=== PATIENT | female | born 1955 | race Caucasian/White ===

== ENCOUNTER → 2018-08-21 09:24 | Outpatient (CLI) | payer OTHER, SELFPAY ==
--- NOTE | 2018-08-21 09:30 | DI.RAD.S_ITS ---
PROCEDURE: XR CHEST 2V INDICATIONS: Nicotine dependence, cigarettes, uncomplicated TECHNIQUE: 2 views of the chest were acquired. COMPARISON: None. FINDINGS: Surgical changes and devices: None. Lungs and pleura: No pleural effusions or pneumothorax. Lungs are clear. Mediastinum: Mediastinal contours are normal. Heart size is normal. Bones and chest wall: No suspicious bony abnormalities. Soft tissues appear unremarkable. IMPRESSION: No acute disease. Dictated by: Yusef Boyer M.D. on 08/21/2018 at 10:15 Approved by: Yusef Boyer M.D. on 08/21/2018 at 10:16
== END ==
PROVIDERS: PCP Physician Assistant; Visit Provider Physician Assistant
DX: F17.210 Nicotine dependence, cigarettes, uncomplicated (principal)
CPT/HCPCS: 71046

== ENCOUNTER 2019-04-19 20:03 | Emergency (ER) | payer OTHER, SELFPAY ==
[2019-04-19 20:11] VITALS: BP 155/84; PULSE 78; RESP 16; TEMP 37; O2SAT 96
--- NOTE | 2019-04-19 21:32 | PC.NURSE ---
Addendum entered by Philomena Castro R.N. 04/19/19 21:37: PT reports not on blood thinners. Original Note: PT states bleeding to R ankle onset while taking a shower with steady stream of blood coming out, denies trauma reports history of varicose veins and that a small lump was there near cluster of varicose veins earlier in day. Coban placed in triage, bleeding controlled at present.
--- NOTE | 2019-04-20 01:55 | ED.EXTPRO ---
HPI - Extremity Problem General Chief complaint: Extremity Problem,Nontraumatic Stated complaint: RIGHT FOOT BLEEDING Time Seen by Provider: 04/19/19 20:45 Source: patient and family Mode of arrival: ambulatory Limitations: no limitations History of Present Illness HPI Narrative: 63-year-old female nonsmoker with history of varicose veins presents with her in the chief complaint of spontaneous bleeding from her right medial ankle which he noted in the shower just prior to arrival. She denies any injury and had not shaved her legs but noted heavy bleeding from a varicose vein in her medial ankle, this is never happened before. She is not dizzy nor weak or lightheaded. She does not take blood thinners. She denies any numbness, tingling or weakness. She put a pressure bandage on and the bleeding and. Prior to her arrival MD Complaint: other Onset (ago): minute(s) Pain Consistency: now resolved Location: right Radiation: none Relieving factors: elevation Associated symptoms: denies other symptoms Related Data Previous Rx's Medication Instructions Recorded nitrofurantoin monohyd/m-cryst 100 mg PO BIDCC #10 cap 06/30/17 [Macrobid] Allergies Allergy/AdvReac Type Severity Reaction Status Date / Time No Known Drug Allergies Allergy Unverified 12/24/18 15:54 Review of Systems Constitutional Denies chills, Denies fever(s), Denies lethargy and Denies weakness Eyes Denies change in vision, Denies eye discharge, Denies irritation and Denies loss of vision ENT Ears, Nose, Mouth, and Throat: Denies change in voice, Denies neck pain and Denies sore throat Cardiovascular Denies chest pain, Denies irregular heart rhythm, Denies lightheadedness, Denies palpitations, Denies dyspnea, Denies dyspnea on exertion and Denies orthopnea Respiratory Denies cough, Denies dyspnea, Denies dyspnea on exertion and Denies wheezing Gastrointestinal Gastrointestinal: Denies abdominal pain, Denies change in bowel habits, Denies diarrhea, Denies nausea and Denies vomiting Genitourinary Denies hematuria, Denies flank pain, Denies urinary incontinence and Denies urinary urgency Musculoskeletal Denies neck pain Integumentary/Breasts Denies pruritus, Denies erythema, Denies rash and Reports wounds Neurologic Denies confusion, Denies loss of vision and Denies weakness Psychiatric Denies anxiety, Denies confusion, Denies depression, Denies homicidal ideation and Denies suicidal ideation Endocrine Denies palpitations Hematologic/Lymphatic Denies easy bruising Allergic/Immunologic Denies wheezing [facility] History of third molar tooth extraction Status post breast biopsy Status post tubal ligation Social History Smoking Status: Former smoker Social History Smoking Status: Former smoker Exam Narrative Exam Narrative: GEN: AOx3 and in mild distress EYES: Pupils are equal, round, and reactive to light and accommodation. Extraoccular muscles are intact bilaterally. There is no subconjunctival hemorrhage or exudate. CHEST: Lungs are clear to auscultation bilaterally and free of wheezes, rales, or rhonchi. Heart rate is regular rhythm, there are no murmurs, clicks, rubs, or gallops. There is no chest wall tenderness. ABD: Abdomen is soft and nontender. There is no guarding or rebound. Bowel sounds are normal in all 4 quadrants. There is no mass or organomegaly. EXT:Varicose veins noted in B/L LE. Very small lesion noted on medial ankle no longer bleeding. Sensation in tact, good color and cap refill <2s Full painless ROM of all extremities with no loss of sensation or strength. SKIN: Warm, pink, and dry. No erythema or rash Initial Vital Signs Initial Vital Signs: Vital Signs Temperature 98.6 F 04/19/19 20:11 Pulse Rate 78 04/19/19 20:11 Respiratory Rate 16 04/19/19 20:11 Blood Pressure 155/84 H 04/19/19 20:11 Pulse Oximetry 96 04/19/19 20:11 Course Orders Ordered: Discontinued Medications Lidocaine/Epinephrine (Xylocaine 1% W/Epi) 1 ml SUBCUT NOW ONE Stop: 04/19/19 21:04 Last Admin: 04/19/19 21:30 Dose: Not Given Vital Signs - 8 hr 04/19/19 20:11 Temperature 98.6 F Pulse Rate 78 Respiratory Rate 16 Blood Pressure 155/84 H Pulse Oximetry 96 MDM - Extremity (Nontraumatic) MDM Narrative Medical decision making narrative: very small lesion no longer bleeding. Discussion with patient regarding my recommendation to not ligate as any needle punctures are likely to cause new bleeding sites. Return precautions given and questions answered to their apparent satisfaction Discharge Plan Departure Patient Disposition: Home Clinical Impression: Bleeding from varicose vein Discharge Date/Time: 04/19/19 21:20 Interventions: ED Discharge Assessment Last Done: 04/19/19 21:20 Instructions: DI for Varicose Veins Activity Restrictions/Additional Instructions: *You have been diagnosed with [bleeding varicosity] *What to do: * continue to take medications as directed *Follow up with your primary care provider in 2-3 days, call for an appointment. Let them know you were seen in the Emergency Department and that we ask that you be seen in follow up *Return to ER if you should have any new, worsening or concerning symptoms Prescriptions: No Action nitrofurantoin monohyd/m-cryst [Macrobid] 100 MG capsule 100 mg PO BIDCC Qty: 10 RF: 0 Referrals: Ashley Blair PA-C [Primary Care Provider] -
== END 2019-04-19 21:20 | disposition home or self-care (01) ==
PROVIDERS: Emergency Provider Emergency Medicine; Family Provider Physician Assistant; PCP Physician Assistant
DX: I83.899 Varicose veins of unspecified lower extremity with other complications (principal)
CPT/HCPCS: 99282

== ENCOUNTER → 2019-06-21 13:00 | Outpatient (CLI) | payer OTHER, SELFPAY ==
--- NOTE | 2019-06-21 | DI.MG.S_ITS ---
BILATERAL DIGITAL SCREENING MAMMOGRAM 3D/2D WITH CAD: 06/21/2019 CLINICAL: Routine screening. Family history of breast cancer. Comparison is made to exams dated: 01/31/2017 mammogram, 01/08/2011 mammogram, and 05/16/2009 mammogram - [facility]. There are scattered fibroglandular elements in both breasts. Current study was also evaluated with a Computer Aided Detection (CAD) system. There are benign calcifications in both breasts. No significant masses, calcifications, or other findings are seen in either breast. There has been no significant interval change. IMPRESSION: There is no mammographic evidence of malignancy. A 1 year screening mammogram is recommended. This exam was interpreted at Station ID: [id number]. NOTE: For mammograms, a report in lay terms will be sent to the patient. Approximately 15% of breast malignancies will not be visualized mammographically. In the management of a palpable breast mass, a negative mammogram must not discourage biopsy of a clinically suspicious lesion. Electronically Signed By: Natalia guerra/alvin:06/21/2019 17:46:43 letter sent: Normal Exam ACR BI-RADS Category 2: Benign Finding(s) 3342F
== END ==
PROVIDERS: Family Provider Physician Assistant; PCP Physician Assistant; Visit Provider Physician Assistant
DX: Z12.31 Encounter for screening mammogram for malignant neoplasm of breast (principal); Z80.3 Family history of malignant neoplasm of breast
CPT/HCPCS: 77063; 77067

== ENCOUNTER → 2022-04-26 14:52 | Outpatient (CLI) | payer OTHER, SELFPAY ==
--- NOTE | 2022-04-26 | DI.MG.S_ITS ---
BILATERAL DIGITAL SCREENING MAMMOGRAM 3D/2D WITH CAD: 04/26/2022 CLINICAL: Routine screening. Family history of breast cancer. Comparison is made to exams dated: 06/21/2019 mammogram, 01/31/2017 mammogram, and 01/08/2011 mammogram - [facility]. There are scattered areas of fibroglandular density in both breasts (category b / 25%-50% glandular tissue). Current study was also evaluated with a Computer Aided Detection (CAD) system. There are benign calcifications in both breasts. No significant masses, calcifications, or other findings are seen in either breast. There has been no significant interval change. IMPRESSION: BENIGN There is no mammographic evidence of malignancy. A 1 year screening mammogram is recommended. Based on the Tyrer Cuzick model (a risk assessment model) the patient's lifetime risk is 5.3% and her 10 year risk is 2.5%. According to the ACR, ACS, and NCCN guidelines, an annual breast MRI exam along with mammogram is recommended if the patient's lifetime risk is 20% or greater. This exam was interpreted at Station ID: [id number]. NOTE: For mammograms, a report in lay terms will be sent to the patient. Approximately 15% of breast malignancies will not be visualized mammographically. In the management of a palpable breast mass, a negative mammogram must not discourage biopsy of a clinically suspicious lesion. Electronically Signed By: Kayode holden/alvin:04/26/2022 16:17:02 letter sent: Normal Exam ACR BI-RADS Category 2: Benign Finding(s) 3342F
== END ==
PROVIDERS: Family Provider Physician Assistant; PCP Physician Assistant; Referring Provider Physician Assistant; Visit Provider Physician Assistant
DX: Z12.31 Encounter for screening mammogram for malignant neoplasm of breast (principal); Z80.3 Family history of malignant neoplasm of breast
CPT/HCPCS: 77063; 77067

== ENCOUNTER 2023-10-27 08:46 | Day surgery (SDC) | payer OTHER, SELFPAY ==
[2023-10-23 12:46] VITALS: BMI 34.3
[2023-10-27] VITALS (20 sets, daily range): BP systolic 88–139; BP diastolic 40–74; PULSE 50–84; RESP 13–24; TEMP 35.8–36.6; O2SAT 92–100; BMI 34.3
--- NOTE | 2023-10-27 | PATH_ITS ---
[facility] Accession Number: [id number] No. of containers..01 Tissue . 01 Material submitted: . uterus - UTERUS, BILATERAL FALLOPIAN TUBES,BILATERAL OVARIES . 01 Diagnosis: UTERUS, BILATERAL FALLOPIAN TUBES AND BILATERAL OVARIES, HYSTERECTOMY AND BILATERAL SALPINGO-OOPHORECTOMY: Benign endocervical polyp. Endometrium with weakly proliferative to inactive glandular changes with cystic atrophy. Unremarkable myometrium. Bilateral ovaries with benign inclusion cyst, but with otherwise no significant pathologic alterations. Bilateral fimbriated fallopian tubes with complete cross-section of lumen identified and with benign paratubal cysts. [facility] 10/30/2023 1026 Local . 01 Electronically signed: . Eloise Caban MD, Pathologist NPI- [id number] . 01 Gross description: . The specimen is received in formalin labeled with the patient's name, , and uterus, bilateral fallopian tubes, and bilateral ovaries, consists of a 53-gram uterus with attached cervix and attached bilateral adnexa. The 41-gram uterus and cervix measures 6.4 cm from fundus to ectocervix, 4.7 cm from cornu to cornu, and 2.8 cm from anterior to posterior. The serosal surface is pink-irizarry, smooth, and unremarkable. The white-irizarry ectocervix measures 3.2 x 2.2 cm with a central slit-like os measuring 1.5 cm in length. A possible rim of vaginal cuff is noted measuring 2.7 x 0.5 cm. An endocervical polyp is noted measuring 0.9 x 0.6 cm and located in the anterior aspect. The endocervical canal measures 3.3 cm in length and 0.5 cm in diameter. The red-irizarry roughened endometrial cavity measures 1.8 cm in length and 1.8 cm from cornu to cornu. No definitive polyps or lesions are seen. The uterus is serially sectioned to reveal a red hemorrhagic endometrium measuring 0.1 cm in thickness, and a pale pink trabecular myometrium measuring 1.1 cm in thickness. No leiomyomatous nodules are seen. . The left violaceous fimbriated fallopian tube measures 5.8 cm in length and 0.6 cm in diameter. Multiple cloudy opaque paratubal cysts are noted ranging from 0.1 to 0.3 cm in greatest dimension. The white-pink corresponding rubbery ovary measures 2.3 x 1.4 x 0.9 cm and weighs 2 grams. The ovary is sectioned to reveal white-irizarry homogeneous cut surfaces with no abnormality seen. The right violaceous fimbriated fallopian tube measures 4.6 cm in length and 0.8 cm in diameter. Multiple cloudy paratubal cysts are noted ranging from 0.3 to 0.8 cm in greatest dimension. The attached corresponding white rubbery ovary measures 2.3 x 1.4 x 0.8 cm and weighs 3 grams. The ovary is sectioned to reveal white-irizarry homogeneous cut surfaces with no abnormalities seen. . Shotblaster sections are submitted as follows: A1: Anterior and posterior endocervical canal to include polyp. A2: Anterior and posterior endomyometrium. A3: Left fallopian tube, fimbriae entirely submitted. A4: Left ovary. A5: Right fallopian tube, fimbriae entirely submitted. A6: Right ovary. ([id number]) /MRV 10/29/2023 1346 Local . 01 Pathologist provided ICD-10: N84.1, N81.4, N81.6, N81.10 . 01 CPT . 200547 Performed at: 01 [facility] [address] [place] [address] [address] [facility], [place], [place] [id number] MD Sergio Fernández MD Phone: [phone]
[2023-10-27] MEDS: LACTATED RINGERS 1,000 ML 21 ML IV ×2 (09:20→13:35)
--- NOTE | 2023-10-27 10:09 | PM.PREOP ---
Pre-operative Note Interval Note History & Physical reviewed/Exam performed by Physician: Yes Changes to H&P: No H&P completed within 30 days and has changed as indicated here:: 10/17/23
[2023-10-27] MEDS: CEFAZOLIN 2 GM/100 ML PREMIX 100 ML IV (11:05)
--- NOTE | 2023-10-27 11:23 | SUR.OPER ---
Lithotomy on padded OR bed. [place] Pad Positioner under torso. Head on pillow, arms padded and tucked at sides. Legs secured in padded yellow fins stirrups.
[2023-10-27] MEDS: BUPIVACAINE 0.5% (PF) 60 ML, EPINEPHrine 0.3 MG INJ (11:28)
--- NOTE | 2023-10-27 13:20 | P.OP_ITS ---
Operative Date/Time/Diagnoses Date of procedure: 10/27/23 Time of procedure: 13:20 Pre-op diagnosis: Uterine prolapse Cystocele Rectocele Post-op diagnosis: same Procedure & Clinicians Procedure: Procedures Operation Date: 10/27/23 10:15 Actual Procedure Side Surgeon p Laparoscopic Assisted Vaginal Hysterectomy with bilateral salpigo-oophorectomy MD eda Benavides Anterior/Posterior Repair Sujata Morales MD Indications: 68 year old with symptomatic uterine prolapse, cystocele, and rectocele Surgeon: Sujata Morales Boring Mill Set Up Operator: Rea Mcgee Anesthesia Type: General and Local Operative Notes Findings: 6 week size prolapsed uterus Third degree cystocele Third degree rectocele Closure Type: primary Specimen(s): left tube & ovary, right tube & ovary and uterus Applied: catheter (to continuous drainage) and other (vaginal pack in place) Estimated blood loss (mL): 100 Blood products transfused: none Procedure in detail: The patient was taken to the operating room where she was placed in the dorsal supine position. After adequate general endotracheal anesthesia was achieved, she was placed in the dorsal lithotomy position, and prepped and draped in the usual sterile fashion. A bivalve speculum was placed into the vagina, and a single-tooth tenaculum was placed on the anterior lip of the cervix. The cervical os was sequentially dilated until the ZUMI uterine manipulator could pass easily into the endometrial cavity. The single-tooth tenaculum was removed from the anterior lip of the cervix, and the bivalve speculum was removed from the vagina. Attention was then turned to the abdomen where 6 mL of half percent Marcaine with epinephrine were injected in the umbilical fold. A 5 mm incision was made. The Verees needle was placed into the peritoneal cavity, and its placement confirmed by aspiration and drop test. The abdominal cavity was insufflated with 4 L of CO2. The Verees needle was removed, and a 5 mm trocar was placed without difficulty. Initial inspection of the pelvis revealed the findings noted above. 2 other incisions were made 4cm lateral to the midline, after 4cc of 0.5% marcaine were injected. These were 5 mm incisions. Two 5 mm trocars were placed under direct visualization. The right tube and ovary were grasped with an atraumatic grasper. The infundibulopelvic ligament on the right side was cauterized and cut with the Powerseal. The round ligament and broad ligament were cauterized and cut. This was continued to the level of the uterine arteries. This was repeated on the patient's left side. The ins truments were removed from the abdomen. Attention was then turned to the vagina where the ZUMI uterine manipulator was removed from the uterus. The cervix was grasped with a 4 tooth tenaculum. 10 mL of quarter percent Marcaine with epinephrine were injected circumferentially around the cervix. The cervix was circumscribed. The bladder and rectum were dissected off the lower uterine segment and cervix with an open moistened Ray-Annabelle. The peritoneum was entered sharply with the Metzenbaum scissors anteriorly and a Yazmin placed. The peritoneum was entered posteriorly with the Metzenbaum scissors and the long weighted speculum was placed into the posterior cul-de-sac. The uterosacral cardinal ligament complexes were clamped, transected, and suture ligated with 0 Vicryl. These were attached to hemostat. The uterine arteries were clamped, transected, and suture ligated with 0 Vicryl. The uterus was handed off for specimen with the tubes and ovaries. The vaginal cuff was closed with 0 Vicryl with a series of simple interrupted sutures. The tagged sutures were cut. 2 Allis clamps were placed at the apex of the cystocele. 6 mL of half percent Marcaine with epinephrine were injected and an incision was made with a #10 blade between the 2 Allis clamps. Wide Allis clamps were placed on the midline of the cystocele approximately 5. The mucosa was undermined using the Metzen madeline scissors and the mucosa incised in the midline moving the wide Allis clamps to the edges of the mucosa. The mucosa was dissected off the underlying fascia using an open moistened Ray-Annabelle and a #10 blade. The fascia was reapproximated with 0 Vicryl with a series of horizontal mattress sutures. The excess vaginal mucosa was excised. The mucosa was closed using simple interrupted sutures with 2-0 Vicryl including the underlying fascia to close the space. The weighted speculum was removed from the vagina. Allis clamps were placed at the mucocutaneous junction at the introitus. 6 mL of half percent Marcaine with epinephrine were injected. An incision was made with a #10 blade between the 2 Allis clamps, and a triangular piece of skin and underlying subcutaneous tissue was removed. Allis clamps were placed in the midline of the rectocele. 10 mL of half percent Marcaine with epinephrine were injected submucosally. The mucosa was undermined using the Metzenbaum scissors and the mucosa incised in the midline, moving the wide Allis clamps to the mucosal edges. The underlying fascia was dissected off of the mucosa using an open moistened Ray-Annabelle and a #10 blade. The fascia was reapproximated using 0 Vicryl with a series of horizontal mattress sutures. The excess vaginal mucosa was excised. The mucosa was closed using a series of simple interrupted sutures with 2-0 Vicryl including the underlying fascia to close the space. On the perineum 0 Vicryl was used to reapproximate the levator muscle. The subcutaneous layer was closed with 2-0 Vicryl. The skin was closed with 3-0 chromic in a subcuticular fashion. Hemostasis was achieved. A Betadine moistened vaginal pack was placed into the vagina. A rectal exam was done and there were no sutures palpable in the rectum. The urine was clear. Sponge, lap, and instrument counts were correct x-2. The patient tolerated the procedure well, was taken to PACU in stable condition. Complications: none Post-operative Condition: stable Disposition: PACU Plan for aftercare: To Acute Care after Recovery
[2023-10-27] MEDS: LACTATED RINGERS 1,000 ML 75 ML IV (15:02)
[2023-10-27] MEDS: ACETAMINOPHEN 325 MG TABLET 650 MG PO ×2 (15:03→20:10)
[2023-10-27] MEDS: IBUPROFEN 600 MG TABLET PO (20:10)
[2023-10-27] MEDS: DOCUSATE 100 MG CAPSULE 200 MG PO (20:11)
--- NOTE | 2023-10-27 23:22 | PC.NURSE ---
Addendum entered by Bonnie Palacio R.N. 10/28/23 06:17: 0600 Catheter and packing removed and patient tolerated well. Pericare done. Small amount blood noted on peripad. Instructed in sx/prevention of UTI. Instructed in plan for voiding and discharge today. Original Note: Patient is alert and oriented. Breath sounds CTA with RA sat of 95%. HRR. Denied nausea. BT present and is passing flatus. Has tenderness in left lateral quadrants which she states has been present for some time and denied making MD aware of it. Allevyn dressings x 3 to abdomen are CDI; using ice pack for comfort. Has vaginal packing in place and states that is uncomfortable but not painful; is taking only scheduled Ibuprofen + Tylenol for discomfort. Indwelling catheter is patent; plan is to remove packing and catheter at 0600 and patient verbalized understanding of process needed to DC without catheter. Is able to turn herself in bed. Ambulated in marin with walking and 1 assist. Patient reports she has been having some imbalance problems with right leg. Denied weakness but stated foot gets in my way. Wearing peripad which has no blood on it. Is wearing bilateral calf SCD's. Fall risk score is moderate and bed alarm is activated.
[2023-10-28] VITALS: BP 122/44; PULSE 57; RESP 16; TEMP 36.4; O2SAT 94
[2023-10-28] MEDS: IBUPROFEN 600 MG TABLET PO ×2 (03:46→08:53)
[2023-10-28] MEDS: ACETAMINOPHEN 325 MG TABLET 650 MG PO ×2 (03:46→08:54)
[2023-10-28] MEDS: LACTATED RINGERS 1,000 ML 75 ML IV (03:54)
[2023-10-28 04:00] VITALS: BP 110/50; PULSE 60; RESP 17; TEMP 36.6; O2SAT 94
[2023-10-28 04:33] LABS: Add Manual Diff / Slide Review NO; Basophils Absolute Auto 0 /uL (0-100); Basophils Percent Auto 0.2 % (0-2); Eosinophils Absolute Auto 0 /uL (0-450); Eosinophils Percent Auto 0.1 % (2-4); Hematocrit 36.2 % (36-46); Hemoglobin 12.3 g/dL (12.0-16.0); Lymphocytes Absolute Auto 1200 /uL (1100-4500); Lymphocytes Percent Auto 10.7 % (25-40); Mean Corpuscular HGB Conc 33.9 % (30-36); Mean Corpuscular Hemoglobin 29.7 PG (26-34); Mean Corpuscular Volume 87.6 fL (80-100); Monocytes Absolute Auto 1000 /uL (0-900); Monocytes Percent Auto 8.8 % (3-14); Neutrophils Absolute Auto 8700 /uL (1500-7000); Neutrophils Percent Auto 80.2 % (50-75); Platelet Count 227 X10^3/uL (150-400); Red Blood Cell Count 4.13 X10^6/uL (4.0-5.2); Red Cell Distribution Width 13.9 % (11.6-14.8); White Blood Cell Count 10.9 X10^3/uL (4.5-11.0)
[2023-10-28 08:15] VITALS: BP 136/65; PULSE 57; RESP 16; TEMP 36.8; O2SAT 98
[2023-10-28] MEDS: SODIUM CHLORIDE 0.9% FLUSH 10 ML IV (08:54)
[2023-10-28] MEDS: DOCUSATE 100 MG CAPSULE 200 MG PO (08:54)
--- NOTE | 2023-10-28 09:29 | CM.DANOTE ---
DCP Assessment Note Pt is a 68yo F here following hysterectomy with Dr. Morales. PCP Ashley Blair Payer [employer] and self pay CHANNEL ROUGHER reviewed EMR. Per chart review, pt to dc home with family support today. No identified CM needs. Pt walking around in room with spouse when this CHANNEL ROUGHER walked by, dressed and ready to go. Per RN, home today no obvious CM needs. Plan: home with spouse today, transport with family. No identified CM needs. CM team will follow as needed. CLAY Andres Discharge Planning/Care Management CM Discharge Assessment Start: 10/28/23 09:27 Freq: Status: Active Protocol: Document 10/28/23 09:27 SL (Rec: 10/28/23 09:29 [id number]) Discharge Planning Assessment Assigned V Groove Cutter CLAY Ford DPOA/Assigned Designee Name Kurtis spouse Contact Information [phone] Advance Directives? No History Provided By Patient,Medical Record Prior Living Arrangements House Household Members spouse Type of transporation used prior to Drives own vehicle admit Independent with ADL's Yes Is patient alert and oriented? Yes Barriers to Discharge No Discharge Plan Home Transportation Arrangement family in POV Referrals Initiated None needed Whiteboard Updated in Patient Room with No name and ext. # of V Groove Cutter Review Status In Process Next Review Type Continued Stay Review Pre-Anesthesia Assessment Start: 10/23/23 12:46 Freq: Status: Complete Protocol: Document 10/23/23 12:46 CAB (Rec: 10/23/23 12:48 CAB [id number]) Pre-Anesthesia Assessment Patient Information Reviewed Via Chart Review Primary Care Provider Ashley Blair Medical Clearance Received Yes Seen Specialist in Last 12 Months Yes Specialist Seen Consulting Sales Executive Primary Language Armenian Bolt Machine Operator Required No Height 167.64 cm Weight 96.615 kg Body Mass Index (BMI) 34.3 Barriers to Learning None Anesthesia Review Requested No Wood Patternmaker No alcohol intake current alcohol intake frequency a few times a week Smoking Status Former smoker Substance Use Type does not use Patient is completely paralyzed or No completely immobile Mental Status Oriented to own ability Hx Sleep Apnea Yes: Mild per PSG study 2019 Sleep apnea treatment Treatment unknown Currently Taking a Beta Cody No Anti-Coagulant Therapy No Cardiac Testing No Hx Pacemaker/ICD No Pacemaker Rep Required? No Cardiac Clearance Received Not Applicable Urinary Catheter Present No Hx Urinary Self Catheterization No Diabetes No Patient No Lactating No Marital Status Patient Discharge Plan Description Return Home Advance Directives? No
--- NOTE | 2023-10-28 18:51 | P.DS_ITS ---
History of Present Illness History of Present Illness Date Patient Seen: 10/28/23 Time Patient Seen: 08:30 Chief complaint: Lap-Assisted Vag Hysterectomy w/iman salp *OPB* Narrative: Patient is a 68-year-old postop day # 1 status post LAVH/BSO/anterior and posterior repair. Discharge Providers Provider Discharge Date: 10/28/23 Primary care physician: Ashley Blair PA-C Discharge provider: Sujata Morales MD Summary Hospital Course Discharge Diagnosis: Symptomatic uterine prolapse, cystocele, rectocele Status post LAVH/BSO/anterior and posterior repair Hospital Course: Patient is a 68-year-old who presented on October 27, 2023 for a scheduled LAVH/BSO/anterior and posterior repair. She underwent this procedure without complication. On postop day # 1 her vaginal packing and Montoya catheter were removed. She voided 200-300 cc of urine on 2 separate occasions and on the second 1 had a postvoid residual of 25 cc. She had minimal bleeding vaginally. Her pain was well controlled. She tolerated a diet. No nausea or vomiting. She was ambulating independently. She was discharged to home. Status at Discharge Cognitive/behavioral status at discharge: oriented Functional status at discharge: independent ambulation Overall status at discharge: patient is progressing back to baseline Time Spent with Patient Time spent: Less than 30 minutes Exam Vital Signs (past 8 hours): Oxygen Delivery Method Room Air Oxygen Flow Rate 0 Narrative Exam Narrative: Generally: Patient is sitting up in bed, eating breakfast, no acute distress Lungs: Clear to auscultation bilaterally Cardiovascular: Regular rate and rhythm Abdomen: Soft and flat. Incisions: Clean dry and intact with Allevyn dressings Extremities: No edema, negative Homans Objective Labs 10/28/23 03:55 Labs: Laboratory Results - last 24 hr 10/28/23 03:55 WBC 10.9 RBC 4.13 Hgb 12.3 Hct 36.2 MCV 87.6 MCH 29.7 MCHC 33.9 RDW 13.9 Plt Count 227 Neut % (Auto) 80.2 H Lymph % (Auto) 10.7 L Atkinson % (Auto) 8.8 Eos % (Auto) 0.1 L Baso % (Auto) 0.2 Neut # (Auto) 8700 H Lymph # (Auto) 1200 Atkinson # (Auto) 1000 H Eos # (Auto) 0 Baso # (Auto) 0 PFSH Medical History (Updated 10/23/23 @ 12:47 by Trinh Mendez RN) Sleep apnea (~2018) Surgical History (Updated 10/21/22 @ 20:42 by Natalia Jacques) Anesthesia Status post tubal ligation (~1980) Status post breast biopsy History of third molar tooth extraction Family History (Updated 10/21/22 @ 20:44 by Natalia Jacques) Father Congestive heart failure Diabetes mellitus Hypertension Mother Mental health problem Stroke Social History household members: spouse Smoking Status: Former smoker alcohol intake: current Discharge Plan Discharge Plan Patient Disposition: Admitted to Surgery Provider Discharge Comment: Call with fever, chills, or redness or drainage around the incisions Expect a small amount of vaginal bleeding, but call if more than spotting to light Tylenol 650 mg every 6 hours as needed Ibuprofen 600 mg every 6 hours as needed Docusate 200 mg once a day Discharge orders & Medications Discharge Orders: Discharge (Order); Ordered 10/28/23 Ordered By: Sujata Morales Prescriptions: New oxycodone 5 mg tablet 5 mg PO Q4H PRN (Reason: pain) Qty: 10 0RF Continued valacyclovir [Valtrex] 1 gram tablet 1,000 mg PO BID PRN (Reason: md ordered) Rx Instructions: take one tablet twice daily for 2-3 days Discontinued estradiol [Estrace] 0.01 % (0.1 mg/gram) cream 0.5 g vaginal 2XW Qty: 42.5 3RF Follow up/Referrals: Sujata Morales MD [Physician] - As previously scheduled (Postop appointments already scheduled) Diet/Activity/Treatments Diet: Regular Activity: No heavy lifting Nothing in the vagina Skin/Wound/Dressing Care Report to your healthcare provider any signs of infection, such as:: chills, fever, night sweats and unusual drainage Dressing: Remove outer pink dressings with attached gauze on morning after a shower May shower daily Visit Report/Discharge Packet Instructions: DI for Cystocele and Rectocele Repair, DI for Hysterectomy, DI for Laparoscopy, DI for Prescription Opioid Use, DI for Vaginal Hysterectomy Stand Alone Forms: Patient Portal/API, Surgery Discharge Discharge Data Primary Care Provider: Ashley Blair Attending Provider: Sujata Morales VTE Deep Vein Thrombosis/Pulmonary Embolism Present on Admission: No
== END 2023-10-28 09:38 | disposition home or self-care (01) ==
LOC: OR 08:47 → AC 08:47
PROVIDERS: Family Provider Physician Assistant; PCP Physician Assistant; Referring Provider Obstetrics & Gynecology; Visit Provider Obstetrics & Gynecology
PROC: 0UT9FZZ Resection of Uterus, Via Natural or Artificial Opening With Percutaneous Endoscopic Assistance (ICD-10-PCS; CPT 58552; principal; 2023-10-27 10:15)
PROC: (CPT 58552; 2023-10-27 10:15)
DX: N81.3 Complete uterovaginal prolapse (principal); N84.1 Polyp of cervix uteri; N83.8 Other noninflammatory disorders of ovary, fallopian tube and broad ligament; N83.292 Other ovarian cyst, left side; N83.291 Other ovarian cyst, right side
CPT/HCPCS: 58552; 57260; 36415; 85025; J0171; J0690; J1100; J1170; J2250; J2405; J2704; J3010

== ENCOUNTER → 2025-03-17 09:57 | Outpatient (CLI) | payer MEDICARE, OTHER, SELFPAY ==
[2023-10-27 14:39] VITALS: BMI 34.3
[2025-03-17 10:53] LABS: Add Manual Diff / Slide Review NO; Hematocrit 41.3 % (36-46); Hemoglobin 14.1 g/dL (12.0-16.0); Lymphocytes Absolute Auto 1500 /uL (1100-4500); Mean Corpuscular HGB Conc 34.1 % (30-36); Mean Corpuscular Hemoglobin 30.0 PG (26-34); Mean Corpuscular Volume 87.9 fL (80-100); Platelet Count 240 X10^3/uL (150-400)
[2025-03-17 11:04] LABS: Alanine Aminotransferase 23 IU/L (<35); Albumin 4.7 g/dL (3.5-5.0); Albumin Globulin Ratio 1.7 (1.0-2.8); Alkaline Phosphatase 77 U/L (38-126); Blood Urea Nitrogen 16 mg/dL (7-17); Calcium 9.9 mg/dL (8.4-10.2); Carbon Dioxide 26 mmol/L (22-32); Chloride 105 mmol/L (98-107); Cholesterol 225 mg/dL (140-199); Estimated Glomerular Filt Rate > 60 mL/min (>60); Globulin 2.8 g/dL (1.7-4.1); Glucose 96 mg/dL (70-99); HDL Cholesterol 81 mg/dL (40-60); HEMOLYSIS < 15 (0-50); Potassium 4.3 mmol/L (3.4-5.1); Sodium 138 mmol/L (137-145); Total Protein 7.5 g/dL (6.3-8.2); Triglycerides 69 mg/dL (35-150)
[2025-03-17 11:36] LABS: TSH w/ Reflex to FT4 0.73 uIU/mL (0.47-4.68)
[2025-03-19 04:10] LABS: CRP, High Sensitivity 2.33 mg/L (0.00-3.00)
[2025-03-20 08:08] LABS: Insulin Level Total 8.8 uIU/mL (2.6-24.9)
== END ==
PROVIDERS: PCP Family Medicine; Referring Provider Family Medicine; Visit Provider Family Medicine
DX: E88.810 Metabolic syndrome (principal); E78.5 Hyperlipidemia, unspecified; E66.9 Obesity, unspecified; E66.811 Obesity, class 1; E34.9 Endocrine disorder, unspecified; E03.9 Hypothyroidism, unspecified
CPT/HCPCS: 36415; 80053; 80061; 82627; 83525; 84403; 84443; 85025; 86140

== ENCOUNTER → 2025-03-30 09:14 | Outpatient (CLI) | payer MEDICARE, OTHER, SELFPAY ==
[2023-10-27 14:39] VITALS: BMI 34.3
--- NOTE | 2025-03-30 09:15 | DI.MG.S_ITS ---
MM screening mammo BI: 03/30/2025. BI-RADS: 1 CLINICAL: 69-year old female for bilateral screening mammogram. Tyrer-Cuzick lifetime risk of 9.7%. No personal or first-degree family history of breast cancer. Current reported family history of breast cancer: paternal grandmother. The patient had a prior left breast biopsy. PRIOR EXAMS 04/26/2022, 06/21/2019, 02/14/2017, 01/31/2017. MAMMOGRAPHY TECHNIQUE: 2D and 3D (tomosynthesis) digital mammographic views obtained, with additional images as needed for full coverage. Current study was also evaluated with a Computer Aided Detection (CAD) system. DENSITY B. There are scattered areas of fibroglandular density. MAMMOGRAPHY FINDINGS Bilateral: No suspicious mass, asymmetry, microcalcification, or other abnormality seen. No significant change from comparison. IMPRESSION: * No evidence of malignancy. RECOMMENDATIONS Bilateral * Annual screening mammography. OVERALL ASSESSMENT CATEGORY BI-RADS-1: Negative. The [employer] recommends annual screening mammography beginning at age 40 for women with average risk of breast cancer. ELECTRONICALLY SIGNED: Amita Trejo M.D. on 03/30/2025 at 10:43:32 PM PT Interpreting Station ID: [id number]
--- NOTE | 2025-03-30 09:15 | DI.RAD.S_ITS ---
PROCEDURE: XR DEXA AXIAL SKELETON INDICATIONS: menopausal COMPARISON: None. FINDINGS: Lumbar Spine: Bone mineral density 1.014 g/cm2, T score -0.3. Left Femoral Neck: Bone mineral density 0.738 g/cm2, T score -1.0. Left Hip: Bone mineral density 0.876 g/cm2, T score -0.5. Fracture Risk Calculation (when applicable): 10-year fracture risk of a major osteoporotic fracture 8.2 percent and of a hip fracture 0.7 percent. IMPRESSION: Normal Follow-up guidelines as follows: Osteoporosis: Consider a repeat DEXA and Vertebral Fracture Assessment (VFA) exam in 2 years or sooner if medically necessary, to reassess this patient's status. Osteopenia: Consider a repeat DEXA in 2-3 years to reassess this patient's status, or if there is a new clinical indication. Normal: Consider a repeat DEXA in 5 years or sooner, or if there is a new clinical indication. All treatment decisions require clinical judgment and consideration of individual patient factors, including patient preferences, comorbidities, previous drug use, risk factors not captured in the FRAX model (e.g., frailty, falls, vitamin D deficiency, increased bone turnover, interval significant decline in bone density ) and possible under- or over-estimation of fracture risk by FRAX. In addition, the NOF Guide recommends that FDA-approved medical therapies be considered in postmenopausal women and men age >= 50 years with a: * Hip or vertebral (clinical or morphometric) fracture * T-score of <=-2.5 at the spine or hip * Ten-year fracture probability by FRAX of >= 3% for hip fracture or >=20% for major osteoporotic fracture. Dictated by: Luis Daniel Munguia M.D. on 04/01/2025 at 4:30 Approved by: Luis Daniel Munguia M.D. on 04/01/2025 at 4:40
== END ==
PROVIDERS: PCP Family Medicine; Referring Provider Family Medicine; Visit Provider Family Medicine
DX: Z12.31 Encounter for screening mammogram for malignant neoplasm of breast (principal); E66.811 Obesity, class 1; Z80.3 Family history of malignant neoplasm of breast
CPT/HCPCS: 77063; 77067; 77080